=== PATIENT | male | born 1935 | race Caucasian/White ===

== ENCOUNTER 2016-09-03 14:17 | Outpatient (CLI) | payer MEDICARE, BC | END 2016-09-03 14:18 | disposition home or self-care (01) | DX: I48.91 Unspecified atrial fibrillation (principal) ==

== ENCOUNTER 2016-10-09 13:54 | Outpatient (CLI) | payer MEDICARE, BC | END 2016-10-09 13:55 | disposition home or self-care (01) | DX: I48.91 Unspecified atrial fibrillation (principal) ==

== ENCOUNTER 2016-12-19 13:40 | Outpatient (CLI) | payer MEDICARE, BC | END 2016-12-19 13:41 | disposition home or self-care (01) | DX: I48.91 Unspecified atrial fibrillation (principal) ==

== ENCOUNTER 2017-01-23 11:24 | Outpatient (CLI) | payer MEDICARE, BC | END 2017-01-23 11:25 | disposition home or self-care (01) | LOC: LAB.F 11:24 | PROVIDERS: ATTEND Internal Medicine Cardiovascular Disease | DX: I48.91 Unspecified atrial fibrillation (principal) | CPT/HCPCS: 85610 ==

== ENCOUNTER 2017-02-05 08:00 | Outpatient (CLI) | payer MEDICARE, BC | END 2017-02-05 08:01 | LOC: LAB.F 08:00 | PROVIDERS: ATTEND Internal Medicine Cardiovascular Disease | DX: I48.91 Unspecified atrial fibrillation (principal) | CPT/HCPCS: 85610 ==

== ENCOUNTER 2017-03-05 13:57 | Outpatient (CLI) | payer MEDICARE, BC | END 2017-03-05 13:58 | disposition home or self-care (01) | LOC: LAB.F 13:57 | PROVIDERS: ATTEND Internal Medicine Cardiovascular Disease | DX: I48.91 Unspecified atrial fibrillation (principal) | CPT/HCPCS: 85610 ==

== ENCOUNTER 2017-03-16 11:19 | Outpatient (CLI) | payer MEDICARE, BC | END 2017-03-16 11:20 | disposition home or self-care (01) | LOC: LAB.F 11:19 | PROVIDERS: ATTEND Internal Medicine Cardiovascular Disease | DX: I48.91 Unspecified atrial fibrillation (principal) | CPT/HCPCS: 85610 ==

== ENCOUNTER 2017-05-18 14:50 | Outpatient (CLI) | payer MEDICARE, BC | END 2017-05-18 14:51 | disposition home or self-care (01) | LOC: LAB.F 14:50 | PROVIDERS: ATTEND Internal Medicine Cardiovascular Disease | DX: I48.91 Unspecified atrial fibrillation (principal) | CPT/HCPCS: 85610 ==

== ENCOUNTER 2017-06-02 13:02 | Outpatient (CLI) | payer MEDICARE, BC | END 2017-06-02 13:03 | disposition home or self-care (01) | LOC: SC 13:02 | PROVIDERS: ATTEND Nurse Practitioner Family | DX: G47.33 Obstructive sleep apnea (adult) (pediatric) (principal) | CPT/HCPCS: 99204; G0463; 99212 ==

== ENCOUNTER 2017-06-15 11:36 | Outpatient (CLI) | payer MEDICARE, BC | END 2017-06-15 11:37 | disposition home or self-care (01) | LOC: LAB.F 11:36 | PROVIDERS: ATTEND Internal Medicine Cardiovascular Disease | DX: I48.91 Unspecified atrial fibrillation (principal) | CPT/HCPCS: 85610 ==

== ENCOUNTER 2017-06-22 13:56 | Outpatient (CLI) | payer MEDICARE, BC | END 2017-06-22 13:57 | disposition home or self-care (01) | LOC: LAB.F 13:56 | PROVIDERS: ATTEND Internal Medicine Cardiovascular Disease | DX: I48.91 Unspecified atrial fibrillation (principal) | CPT/HCPCS: 85610 ==

== ENCOUNTER 2017-06-29 15:47 | Outpatient (CLI) | payer MEDICARE, BC | END 2017-06-29 15:48 | LOC: LAB.F 15:47 | PROVIDERS: ATTEND Internal Medicine Cardiovascular Disease | DX: I48.91 Unspecified atrial fibrillation (principal) | CPT/HCPCS: 85610 ==

== ENCOUNTER 2017-07-06 14:24 | Outpatient (CLI) | payer MEDICARE, BC | END 2017-07-06 14:25 | disposition home or self-care (01) | LOC: LAB.F 14:24 | PROVIDERS: ATTEND Internal Medicine Cardiovascular Disease | DX: I48.91 Unspecified atrial fibrillation (principal) | CPT/HCPCS: 85610 ==

== ENCOUNTER 2017-07-20 08:00 | Outpatient (CLI) | payer MEDICARE, BC | END 2017-07-20 08:01 | disposition home or self-care (01) | LOC: LAB.F 08:00 | PROVIDERS: ATTEND Internal Medicine Cardiovascular Disease | DX: I48.91 Unspecified atrial fibrillation (principal) | CPT/HCPCS: 85610 ==

== ENCOUNTER 2017-07-22 22:06 | Outpatient (CLI) | payer MEDICARE, BC | END 2017-07-22 22:07 | disposition home or self-care (01) | LOC: SC 22:06 | PROVIDERS: ATTEND Internal Medicine Pulmonary Disease | DX: G47.61 Periodic limb movement disorder (principal); I48.91 Unspecified atrial fibrillation | CPT/HCPCS: 95810 ==

== ENCOUNTER 2017-08-11 14:54 | Outpatient (CLI) | payer MEDICARE, BC | END 2017-08-11 14:55 | disposition home or self-care (01) | LOC: LAB.F 14:54 | PROVIDERS: ATTEND Internal Medicine Cardiovascular Disease | DX: I48.91 Unspecified atrial fibrillation (principal) | CPT/HCPCS: 85610 ==

== ENCOUNTER 2017-08-25 14:27 | Outpatient (CLI) | payer MEDICARE, BC | END 2017-08-25 14:28 | disposition home or self-care (01) | LOC: LAB.F 14:27 | PROVIDERS: ATTEND Internal Medicine Cardiovascular Disease | DX: I48.91 Unspecified atrial fibrillation (principal) | CPT/HCPCS: 85610 ==

== ENCOUNTER 2017-09-02 10:32 | Outpatient (CLI) | payer MEDICARE, BC | END 2017-09-02 10:33 | disposition home or self-care (01) | LOC: LAB.F 10:32 | PROVIDERS: ATTEND Internal Medicine Cardiovascular Disease | DX: I48.91 Unspecified atrial fibrillation (principal) | CPT/HCPCS: 85610 ==

== ENCOUNTER 2017-09-08 08:00 | Outpatient (CLI) | payer MEDICARE, BC | END 2017-09-08 08:01 | disposition home or self-care (01) | LOC: LAB.F 08:00 | PROVIDERS: ATTEND Internal Medicine Cardiovascular Disease | DX: I48.91 Unspecified atrial fibrillation (principal) | CPT/HCPCS: 85610 ==

== ENCOUNTER 2017-09-12 10:46 | Outpatient (CLI) | payer MEDICARE, BC | END 2017-09-12 10:47 | disposition EMS.NT | LOC: EMS 10:46 | PROVIDERS: ATTEND Surgery | DX: R41.82 Altered mental status, unspecified (principal); R73.09 Other abnormal glucose; W06.XXXA Fall from bed, initial encounter; Y92.003 Bedroom of unspecified non-institutional (private) residence as the place of occurrence of the external cause ==

== ENCOUNTER 2017-09-14 11:10 | Outpatient (CLI) | payer MEDICARE, BC | END 2017-09-14 11:11 | disposition home or self-care (01) | LOC: LAB.F 11:10 | PROVIDERS: ATTEND Internal Medicine Cardiovascular Disease | DX: I48.91 Unspecified atrial fibrillation (principal) | CPT/HCPCS: 85610 ==

== ENCOUNTER 2017-09-17 14:43 | Outpatient (CLI) | payer MEDICARE, BC | END 2017-09-17 14:44 | disposition home or self-care (01) | LOC: LAB.F 14:43 | PROVIDERS: ATTEND Internal Medicine Cardiovascular Disease | DX: I48.91 Unspecified atrial fibrillation (principal) | CPT/HCPCS: 85610 ==

== ENCOUNTER 2017-09-22 13:57 | Outpatient (CLI) | payer MEDICARE, BC | END 2017-09-22 13:58 | disposition home or self-care (01) | LOC: LAB.F 13:57 | PROVIDERS: ATTEND Internal Medicine Cardiovascular Disease | DX: I48.91 Unspecified atrial fibrillation (principal) | CPT/HCPCS: 85610 ==

== ENCOUNTER 2017-11-26 14:07 | Outpatient (CLI) | payer MEDICARE, BC | END 2017-11-26 14:08 | disposition home or self-care (01) | LOC: LAB.F 14:07 | PROVIDERS: ATTEND Internal Medicine Cardiovascular Disease | DX: Z53.9 Procedure and treatment not carried out, unspecified reason (principal) ==